=== PATIENT | male | born 1945 | race Caucasian/White ===

== ENCOUNTER → 2017-07-09 | Outpatient (CLI) | payer MEDICARE ==
[~2017-07-09] MED LIST: ASPIRIN 81MG TA81 MG PO; BISOPROLOL 5MG T5 MG PO; COUMADIN 2MG TAB2 MG PO; COUMADIN1 MG PO; CRESTOR10 MG PO; DYAZIDE1 CAP PO; LISINOPRIL2.5 MG PO; NITROGLYCERIN0.4 MG SL; TIMOPTIC 0.25% O5 M1 OP; TRICOR 145 MG145 MG NG; VITAMIN D1000 IU PO
[2017-07-09 11:42] LABS: URINE BLOOD TRACE-INTACT (NEG)
[2017-07-09 12:08] LABS: URINE BILIRUBIN - DIPSTICK NEGATIVE (NEG)
[2017-07-09 12:09] LABS: URINE SQUAMOUS CELLS OCC #/hpf (OCC)
[2017-07-09 14:36] LABS: HEMOGLOBIN 14.9 g/dL (14.1-18.0)
[2017-07-09 14:37] LABS: LYMPH # 1.4 K/mm3 (0.7-4.5); LYMPH % 20.6 % (10-50)
[2017-07-09 16:01] LABS: BUN 50 mg/dL (7-18)
[2017-07-09 17:05] LABS: GFR (ESTIMATED) 26 ML/MIN (>60)
[2017-07-10 06:37] LABS: Vitamin D, 25-Hydroxy 53.6 ng/mL (30.0-100.0)
[2017-07-10 14:40] LABS: Calcium, Ionized 5.4 mg/dL (4.5-5.6)
== END ==
LOC: LAB 10:50
PROVIDERS: Internal Medicine Nephrology
DX: N18.3 Chronic kidney disease, stage 3 (moderate) (principal); R82.90 Unspecified abnormal findings in urine